=== PATIENT | female | born 1930 | race Caucasian/White ===

== ENCOUNTER 2019-04-21 10:10 | Inpatient (IN) ==
[2019-04-21] MEDS ORDERED: NS 1,000 ML IV ONE (10:24)
[2019-04-21] MEDS ORDERED: BENADRYL IV ONE (10:24)
[2019-04-21] MEDS ORDERED: HALDOL IV ONE (10:24)
[2019-04-21] MEDS ORDERED: ATIVAN IV ONE (10:24)
[2019-04-21 11:06] LABS: URINE SOURCE CATH
[2019-04-21 11:11] LABS: ALLEN TEST YES; BE -0.6 mmoll (-3.0-3.0); BLOOD TYPE ARTERIAL; HCO3-(ACT) 24.4 mmoll (20.0-26.0); METHB 0.8 % (0.0-1.5); O2(CT) 19.4 mL/dL (15.0-23.0); O2HB 95.6 % (95.0-99.0); PCO2(98.6) 35 mmHg (35-45); PO2(98.6) 88 mmHg (60-100); SAMPLE BLOOD; SAO2 97.6 % (95.0-100.0); THB 14.4 g/dL (11.5-17.4); pH(98.6) 7.43 (7.35-7.45)
[2019-04-21 11:13] LABS: BASO# 0.01 X1000 (0.0-0.2); BASO% 0.1 % (0.0-0.8); EOS# 0.17 X1000 (0.0-0.7); EOS% 1.6 % (0.0-10.0); HEMATOCRIT 42.1 % (37.0-47.0); HEMOGLOBIN 14.2 g/dL (12.0-16.0); LYMPH# 3.06 X1000 (1.2-3.4); LYMPH% 29.7 % (20.5-51.1); MCH 30.2 PG (27-31); MCHC 33.7 g/dL (33-37); MCV 89.6 FL (81-99); MONO# 0.86 X1000 (0.11-0.59); MONO% 8.3 % (1.7-9.3); MPV 11.7 FL (7.4-10.4); NEUT# 6.21 X1000 (1.4-6.5); NEUT% 60.3 % (42.2-75.2); PLT 187 X1000 (130-400); RDW 13.4 % (11.5-14.5); WBC 10.31 X1000 (4.8-10.8)
[2019-04-21 11:15] LABS: BILIRUBIN URINE NEGATIVE (NEGATIVE); BLOOD URINE TRACE (NEGATIVE); COLOR YELLOW; GLUCOSE URINE NEGATIVE (NEGATIVE); KETONE URINE TRACE mg/dL (NEGATIVE); LEUKOCYTES URINE NEGATIVE (NEGATIVE); NITRITE URINE NEGATIVE (NEGATIVE); PROTEIN URINE TRACE mg/dL (NEGATIVE); SP GRAVITY URINE 1.022; TURBIDITY URINE CLEAR (CLEAR); UROBILINOGEN URINE 2 mg/dL (NORMAL)
[2019-04-21 11:16] LABS: INR 1.09; PROTIME 14.3 Seconds (11.0-16.0)
[2019-04-21 11:16] LABS: UR EPITHELIAL CELLS <10 /HPF (<10); URINE BACTERIA NEGATIVE /HPF; URINE RBC <10 /HPF (<10); URINE WBC <10 /HPF (<10)
[2019-04-21 11:22] LABS: MODALITY ROOM AIR
[2019-04-21 11:24] LABS: UR AMPHETAMINES QUAL NONE DETECTED (NONE DETECT); UR BARBITUATES QUAL NONE DETECTED (NONE DETECT); UR BENZODIAZEPIN QUAL NONE DETECTED (NONE DETECT); UR COCAINE QUAL NONE DETECTED (NONE DETECT); UR OPIATES QUAL NONE DETECTED (NONE DETECT)
[2019-04-21 11:25] LABS: UR CANNABINOIDS QUAL NONE DETECTED (NONE DETECT); UR METHADONE QUAL NONE DETECTED (NONE DETECT); UR OXYCODONE QUAL NONE DETECTED (NONE DETECT); UR PCP QUAL NONE DETECTED (NONE DETECT)
--- NOTE | 2019-04-21 11:28 | Diag Imaging Result Doc PS360 ---
EXAM: CHEST-PORTABLE INDICATION: AMS TECHNIQUE: One view COMPARISON: None. FINDINGS: The lungs are grossly clear. There is no discrete pleural fluid collection or pneumothorax. The cardiomediastinal silhouette and central vasculature are grossly unremarkable. IMPRESSION: No evidence of acute pathology by plain radiograph. Electronically signed by Randy Mitchell 04/21/2019 11:26 AM
[2019-04-21 11:34] LABS: AGAP 13; ALB/GLOB RATIO 2.2; ALBUMIN 4.2 g/dL (3.5-5.0); ALKALINE PHOSPHATASE 94 U/L (32-104); BUN 19 mg/dL (8-22); CALCIUM 10.3 mg/dL (8.8-10.2); CHLORIDE 107 mmol/L (98-107); CK PROFILE 32 U/L (24-173); COSMO 287; GLUCOSE 91 mg/dL (70-104); GOT 15 U/L (10-30); GPT 10 U/L (10-36); MAGNESIUM 2.1 mg/dL (1.5-2.7); POTASSIUM 4.2 mmol/L (3.5-5.1); SODIUM 143 mmol/L (136-145); TCO2 23 mmol/L (25-35); TOTAL BILIRUBIN 0.57 mg/dL (0.20-1.00); TOTAL PROTEIN 6.1 g/dL (6.3-8.3)
--- NOTE | 2019-04-21 11:36 | Diag Imaging Result Doc PS360 ---
EXAM: CT HEAD W/O CONTRAST 04/21/2019 HISTORY: AMS TECHNIQUE: This exam was performed using automated exposure control, adjustment of mA or kV according to patient size, and/or use of iterative reconstruction technique. COMMENT: There are calcifications in the internal carotid arteries bilaterally. There is some patchy ill-defined lucency in the white matter both hemispheres particularly near the atria of the lateral ventricles and frontal horns. There is no evidence of mass effect, bleed, or abnormal extra-axial fluid collection. There is some hyperostosis of the calvarium. No evidence of acute bony disease is present. The visualized paranasal sinuses are clear. Compared to the previous examination of 05/26/2018 there has been no appreciable change. IMPRESSION: Chronic ischemic microvascular white matter changes. No definite evidence of acute disease. Further evaluation with MRI may be desirable in view of the chronic changes. Electronically signed by Roman Coles 04/21/2019 11:33 AM
[2019-04-21 12:33] LABS: ACETAMINOPHEN < 1.2 ug/mL (10-30); SALICYLATES < 3.00 mg/dL (3-10)
--- NOTE | 2019-04-21 12:37 | EKG Report ---
Test Performed on : 04/21/2019 12:04:27 PM Test Reason : AMS Blood Pressure : / mmHG Vent. Rate : 079 BPM Atrial Rate : 079 BPM P-R Int : 178 ms QRS Dur : 082 ms QT Int : 386 ms P-R-T Axes : 068 -23 055 degrees QTc Int : 442 ms Normal sinus rhythm. Possible Left atrial enlargement Borderline ECG No previous ECGs available Unconfirmed Result
[2019-04-21] MEDS ORDERED: CATAPRES PO ONE (16:07)
--- NOTE | 2019-04-21 17:32 | PROVIDER DOCUMENTATION ---
This chart was entered by Heena Gonsalez Scribe, acting as scribe for Asad Pimentel MD. HPI-Neurological Disorder - General Stated Complaint: AMS Time Seen by Provider: 04/21/19 10:16 Source: RN/ (RN) Allergies/Adverse Reactions: Patient Allergies Allergy/AdvReac Type Severity Reaction Status Date / Time No Known Allergies Allergy Verified 04/21/19 11:14 Home Medications: Home Medication List Medication Instructions Recorded Confirmed Last Taken Type Cyanocobalamin (Vitamin B-12) 1,000 mcg IM DIRECTED 05/26/18 04/21/19 03/25/19 History [Liquid B-12] Docusate Sodium 100 mg PO BID 05/26/18 04/21/19 04/21/19 08:00 History Metoprolol Succinate E.r. [Toprol 100 mg PO QHS 05/26/18 04/21/19 04/20/19 20:00 History Xl] Mineral Oil, Light/Mineral Oil 15 ml OP DAILY 05/26/18 04/21/19 04/20/19 History [Soothe Xp Eye Drops] Montelukast [Singulair] 10 mg PO QHS 05/26/18 04/21/19 Unknown History [place]-3 Acid Ethyl Esters [Lovaza] 1 gm PO DAILY 05/26/18 04/21/19 04/21/19 08:00 History SIMVAstatin [Zocor] 10 mg PO QHS 05/26/18 04/21/19 04/20/19 20:00 History Solifenacin Succinate [Vesicare] 10 mg PO DAILY 05/26/18 04/21/19 04/21/19 08:00 History Valsartan [Diovan] 320 mg PO QHS 05/26/18 04/21/19 04/20/19 20:00 History Cetirizine HCl [Zyrtec] 1 tab PO DAILY 04/21/19 04/21/19 04/21/19 08:00 History Polyethylene Glycol 3350 [Miralax] 1 dose PO DIRECTED 04/21/19 04/21/19 04/19/19 08:00 History Quetiapine Fumarate [Seroquel] 1 tab PO QAM 04/21/19 04/21/19 04/21/19 09:00 History Quetiapine [Seroquel] 1 tab PO [facility] 04/21/19 04/21/19 04/20/19 19:00 History - History of Present Illness-Neuro Nature of Presenting Problem: Patient is a 88 year old female who presents to the ED via EMS with altered mental status. RN states EMS stated patient has been combative and uncooperative for the last 5 days. Patient denies pain. Severity: reports: mild Onset/Duration: reports: 5 days ago Timing: reports: still present Context: reports: other (AMS) Character of Altered Mental Status: reports: combative, other (uncooperative) Associated Symptoms: reports: denies symptoms Similar Symptoms Previously?: Yes Recently seen or treated by another doctor?: No Review of Systems - Adult - REVIEW OF SYSTEMS - ADULT ROS:: limited per condition Constitutional: reports: no symptoms reported Eyes: reports: no symptoms reported Ears, Nose, Mouth & Throat: reports: no symptoms reported Cardiovascular: reports: no symptoms reported Respiratory: reports: no symptoms reported Gastrointestinal: reports: no symptoms reported Genitourinary: reports: no symptoms reported Musculoskeletal: reports: no symptoms reported Integumentary: reports: no symptoms reported Neurological: reports: no symptoms reported Psychiatric: reports: no symptoms reported Endocrine: reports: no symptoms reported Hematologic/Lymphatic: reports: no symptoms reported Allergic/Immunologic: reports: no symptoms reported All Other Systems: Reviewed and Negative Past History - Adult - PAST MEDICAL HISTORY-ADULT Review of Records: reports: Old Records Reviewed, Social history reviewed & non- contributory. Major Childhood Illnesses: reports: denies history Cardiovascular: reports: HTN Respiratory: reports: denies history Gastrointestinal: reports: denies history Obstetrical/Gynecological: reports: denies history Genitourinary: reports: denies history Musculoskeletal: reports: denies history Neurological: reports: denies history Psychiatric: reports: denies history Endocrine/Immune: reports: denies history Other Conditions: reports: denies history - PRIOR SURGERIES/PROCEDURES Surgical/Procedure History: reports: reviewed, not pertinent - IMMUNIZATION STATUS Childhood Immunizations: See Nurse Assessment Flu Vaccine: See Nurse Assessment - FAMILY HISTORY Family History: reviewed, not pertinent - SOCIAL HISTORY Smoking: denies Substance Use: denies Living Situation: care facility (assisted living) Physical Exam- Neurological - Physical Exam-Neuro Initial Vital Signs Reviewed: Yes General Appearance: alert, no apparent distress, other (uncooperative). negative: lethargic HENMT: normocephalic/atraumatic, moist mucous membranes. negative: angioedema Head Injury: no evidence of injury. negative: active bleeding, lacerations Respiratory: chest non-tender, lungs clear, normal breath sounds. negative: crackles, rhonchi Cardiovascular: normal peripheral pulses, regular rate, rhythm, extra beats (occasional ectopic beats). negative: tachycardia Abdominal Exam: normal bowel sounds, non tender, soft. negative: guarding, rebound Extremity: non-tender, normal inspection. negative: deformity, erythema anesthesia assistant Exam: normal hearing, normal speech. negative: facial droop Neurologic: grossly normal. negative: aphasia, facial droop Integumentary: normal color, normal turgor, warm/dry. negative: diaphoresis, jaundice, rash Psych/Mental Status: other (uncooperative. oriented to person. disoriented to place and time.). negative: anxious Progress - PLAN OF CARE/RESULTS Progress/Plan/Lab Results: Vital Signs - 8 hr 04/21/19 10:22 04/21/19 10:25 04/21/19 10:30 Temperature Pulse Rate 81 Respiratory Rate 20 Blood Pressure 195/139 O2 Sat by Pulse Oximetry 89 L 95 98 04/21/19 10:34 04/21/19 10:45 04/21/19 10:49 Temperature Pulse Rate 90 105 H 98 H Respiratory Rate 28 H 19 14 Blood Pressure 187/110 197/125 O2 Sat by Pulse Oximetry 99 98 98 04/21/19 10:54 04/21/19 11:00 04/21/19 11:05 Temperature 99 F Pulse Rate 91 H 98 H 90 Respiratory Rate 16 32 H 22 Blood Pressure 197/125 203/143 O2 Sat by Pulse Oximetry 96 98 97 04/21/19 11:29 04/21/19 11:30 04/21/19 11:45 Temperature Pulse Rate 86 84 80 Respiratory Rate 15 23 20 Blood Pressure O2 Sat by Pulse Oximetry 94 L 97 04/21/19 12:00 04/21/19 12:07 04/21/19 12:15 Temperature Pulse Rate 83 78 78 Respiratory Rate 22 16 17 Blood Pressure 136/85 O2 Sat by Pulse Oximetry 98 97 96 04/21/19 12:30 04/21/19 12:45 04/21/19 13:00 Temperature Pulse Rate 74 84 79 Respiratory Rate 14 33 H 27 H Blood Pressure O2 Sat by Pulse Oximetry 96 04/21/19 13:15 04/21/19 13:30 04/21/19 13:31 Temperature Pulse Rate 84 Respiratory Rate 21 Blood Pressure 180/79 O2 Sat by Pulse Oximetry 96 97 04/21/19 13:45 04/21/19 14:01 04/21/19 14:47 Temperature Pulse Rate 86 Respiratory Rate 23 Blood Pressure O2 Sat by Pulse Oximetry 92 L 81 L 04/21/19 14:50 Temperature Pulse Rate 81 Respiratory Rate 17 Blood Pressure 183/118 O2 Sat by Pulse Oximetry 96 Laboratory Results - last 24 hr 04/21/19 04/21/19 04/21/19 10:35 10:35 10:35 WBC 10.31 RBC 4.70 Hgb 14.2 Hct 42.1 MCV 89.6 MCH 30.2 MCHC 33.7 RDW Std Deviation 13.4 Plt Count 187 MPV 11.7 H Neut % (Auto) 60.3 Lymph % (Auto) 29.7 [place] % (Auto) 8.3 Eos % (Auto) 1.6 Baso % (Auto) 0.1 Neut # (Auto) 6.21 Lymph # (Auto) 3.06 [place] # (Auto) 0.86 H Eos # (Auto) 0.17 Baso # (Auto) 0.01 PT INR Specimen Type Sample Site pH pCO2 pO2 HCO3 Base Excess Oxyhemoglobin ABG O2 Sat (Calculated) ABG O2 Saturation ABG Carboxyhemoglobin ABG Methemoglobin El Test A-a O2 Difference Total Hemoglobin Lactate Blood Gas Modality FiO2 % Sodium 143 Potassium 4.2 Chloride 107 Carbon Dioxide 23 L Anion Gap 13 BUN 19 Creatinine 1.0 H BUN/Creatinine Ratio 19 Glucose 91 POC Glucose Calculated Osmolality 287 Calcium 10.3 H Magnesium 2.1 Total Bilirubin 0.57 AST 15 ALT 10 Alkaline Phosphatase 94 Creatine Kinase 32 Troponin T Trb-E-Jwoheamoksy Pept Total Protein 6.1 L Albumin 4.2 Globulin 1.9 Albumin/Globulin Ratio 2.2 Plasma Lactate TSH 0.24 L Urine Source Urine Color Urine Turbidity Urine pH Ur Specific [place] Urine Protein Ur Glucose (Stick) Ur Ketones (Stick) Urine Blood Urine Nitrite Urine Bilirubin Urobilinogen Dipstick Urine Leukocytes Urine WBC (Auto) Urine RBC (Auto) U Epithel Cells (Auto) Urine Bacteria (Auto) Salicylates < 3.00 L Urine Opiates Screen Ur Oxycodone Screen Ur Methadone, Qual Acetaminophen < 1.2 L Ur Barbiturates Screen Ur Phencyclidine Scrn Ur Amphetamines Screen U Benzodiazepines Scrn Urine Cocaine Screen U Cannabinoids Screen Plasma/Serum Ethyl Alc 04/21/19 04/21/19 04/21/19 10:35 10:35 10:35 WBC RBC Hgb Hct MCV MCH MCHC RDW Std Deviation Plt Count MPV Neut % (Auto) Lymph % (Auto) [place] % (Auto) Eos % (Auto) Baso % (Auto) Neut # (Auto) Lymph # (Auto) [place] # (Auto) Eos # (Auto) Baso # (Auto) PT INR Specimen Type Sample Site pH pCO2 pO2 HCO3 Base Excess Oxyhemoglobin ABG O2 Sat (Calculated) ABG O2 Saturation ABG Carboxyhemoglobin ABG Methemoglobin El Test A-a O2 Difference Total Hemoglobin Lactate Blood Gas Modality FiO2 % Sodium Potassium Chloride Carbon Dioxide Anion Gap BUN Creatinine BUN/Creatinine Ratio Glucose POC Glucose Calculated Osmolality Calcium Magnesium Total Bilirubin AST ALT Alkaline Phosphatase Creatine Kinase Troponin T Qgd-C-Pcxzjcebaac Pept 634 H Total Protein Albumin Globulin Albumin/Globulin Ratio Plasma Lactate 2.6 H TSH Urine Source Urine Color Urine Turbidity Urine pH Ur Specific [place] Urine Protein Ur Glucose (Stick) Ur Ketones (Stick) Urine Blood Urine Nitrite Urine Bilirubin Urobilinogen Dipstick Urine Leukocytes Urine WBC (Auto) Urine RBC (Auto) U Epithel Cells (Auto) Urine Bacteria (Auto) Salicylates Urine Opiates Screen Ur Oxycodone Screen Ur Methadone, Qual Acetaminophen Ur Barbiturates Screen Ur Phencyclidine Scrn Ur Amphetamines Screen U Benzodiazepines Scrn Urine Cocaine Screen U Cannabinoids Screen Plasma/Serum Ethyl Alc 04/21/19 04/21/19 04/21/19 10:35 10:35 10:36 WBC RBC Hgb Hct MCV MCH MCHC RDW Std Deviation Plt Count MPV Neut % (Auto) Lymph % (Auto) [place] % (Auto) Eos % (Auto) Baso % (Auto) Neut # (Auto) Lymph # (Auto) [place] # (Auto) Eos # (Auto) Baso # (Auto) PT 14.3 INR 1.09 Specimen Type Sample Site pH pCO2 pO2 HCO3 Base Excess Oxyhemoglobin ABG O2 Sat (Calculated) ABG O2 Saturation ABG Carboxyhemoglobin ABG Methemoglobin El Test A-a O2 Difference Total Hemoglobin Lactate Blood Gas Modality FiO2 % Sodium Potassium Chloride Carbon Dioxide Anion Gap BUN Creatinine BUN/Creatinine Ratio Glucose POC Glucose Calculated Osmolality Calcium Magnesium Total Bilirubin AST ALT Alkaline Phosphatase Creatine Kinase Troponin T < 0.010 Cqh-V-[place] Pept Total Protein Albumin Globulin Albumin/Globulin Ratio Plasma Lactate TSH Urine Source CATH Urine Color YELLOW Urine Turbidity CLEAR Urine pH 6.0 Ur Specific [place] 1.022 Urine Protein TRACE A Ur Glucose (Stick) NEGATIVE Ur Ketones (Stick) TRACE A Urine Blood TRACE A Urine Nitrite NEGATIVE Urine Bilirubin NEGATIVE Urobilinogen Dipstick 2 A Urine Leukocytes NEGATIVE Urine WBC (Auto) <10 Urine RBC (Auto) <10 U Epithel Cells (Auto) <10 Urine Bacteria (Auto) NEGATIVE Salicylates Urine Opiates Screen Ur Oxycodone Screen Ur Methadone, Qual Acetaminophen Ur Barbiturates Screen Ur Phencyclidine Scrn Ur Amphetamines Screen U Benzodiazepines Scrn Urine Cocaine Screen U Cannabinoids Screen Plasma/Serum Ethyl Alc 04/21/19 04/21/19 04/21/19 10:36 11:12 14:38 WBC RBC Hgb Hct MCV MCH MCHC RDW Std Deviation Plt Count MPV Neut % (Auto) Lymph % (Auto) [place] % (Auto) Eos % (Auto) Baso % (Auto) Neut # (Auto) Lymph # (Auto) [place] # (Auto) Eos # (Auto) Baso # (Auto) PT INR Specimen Type ARTERIAL Sample Site R RADIAL pH 7.43 pCO2 35 pO2 88 HCO3 24.4 Base Excess -0.6 Oxyhemoglobin 95.6 ABG O2 Sat (Calculated) 19.4 ABG O2 Saturation 97.6 ABG Carboxyhemoglobin 1.10 ABG Methemoglobin 0.8 El Test YES A-a O2 Difference 18.0 Total Hemoglobin 14.4 Lactate 2.40 H Blood Gas Modality ROOM AIR FiO2 % 21.0 Sodium Potassium Chloride Carbon Dioxide Anion Gap BUN Creatinine BUN/Creatinine Ratio Glucose POC Glucose 70 Calculated Osmolality Calcium Magnesium Total Bilirubin AST ALT Alkaline Phosphatase Creatine Kinase Troponin T Ycd-O-Ovzwcqriugq Pept Total Protein Albumin Globulin Albumin/Globulin Ratio Plasma Lactate TSH Urine Source Urine Color Urine Turbidity Urine pH Ur Specific [place] Urine Protein Ur Glucose (Stick) Ur Ketones (Stick) Urine Blood Urine Nitrite Urine Bilirubin Urobilinogen Dipstick Urine Leukocytes Urine WBC (Auto) Urine RBC (Auto) U Epithel Cells (Auto) Urine Bacteria (Auto) Salicylates Urine Opiates Screen NONE DETECTED Ur Oxycodone Screen NONE DETECTED Ur Methadone, Qual NONE DETECTED Acetaminophen Ur Barbiturates Screen NONE DETECTED Ur Phencyclidine Scrn NONE DETECTED Ur Amphetamines Screen NONE DETECTED U Benzodiazepines Scrn NONE DETECTED Urine Cocaine Screen NONE DETECTED U Cannabinoids Screen NONE DETECTED Plasma/Serum Ethyl Alc Orders Category Date Time Status Finger Stick Blood Sugar (ED) DIRECTED Care 04/21/19 10:21 Active Nursing- Obtain EKG once Care 04/21/19 10:22 Active Saline Loc NOW Care 04/21/19 10:22 Active Straight Catheterization ORDERED Care 04/21/19 10:22 Active Regular Diet Diet 04/21/19 16:02 Active CHEST-PORTABLE [RAD] Stat Exams 04/21/19 10:[address] HEAD W/O CONTRAST [CT] Stat Exams 04/21/19 10:24 Completed ABG [RESP] Routine Lab 04/21/19 11:12 Completed ACETAMINOPHEN [TDM] Stat Lab 04/21/19 10:35 Completed ALCOHOL BLOOD Stat Lab 04/21/19 10:35 Completed BLOOD CULTURE [BLDCUL] Stat Lab 04/21/19 10:35 Results CBC WITH ELECTRONIC DIFF [HEME] Stat Lab 04/21/19 10:35 Completed CK PROFILE [SP CHEM] Stat Lab 04/21/19 10:35 Completed COMPREHENSIVE METABOLIC PANEL [CHEM] Stat Lab 04/21/19 10:35 Completed LACTATE, PLASMA [CHEM] Stat Lab 04/21/19 10:35 Completed MAGNESIUM [CHEM] Stat Lab 04/21/19 10:35 Completed PRO B-NATRIURETIC PEPTIDE Stat Lab 04/21/19 10:35 Completed PROTIME WITH INR [COAG] Stat Lab 04/21/19 10:35 Completed SALICYLATES [TDM] Stat Lab 04/21/19 10:35 Completed TROPONIN T Stat Lab 04/21/19 10:35 Completed TSH Stat Lab 04/21/19 10:35 Completed URINALYSIS W/POSS RFLX CULT [URINALYSIS] Stat Lab 04/21/19 10:36 Completed URINE DRUG SCREEN Stat Lab 04/21/19 10:36 Completed 0.9% Sodium Chloride Inj [Ns] 1,000 ml Med 04/21/19 10:24 Discontinued IV 999 mls/hr Clonidine [Catapres] Med 04/21/19 16:07 Discontinued 0.2 mg PO NOW ONE Diphenhydramine [Benadryl] Med 04/21/19 10:24 Discontinued 25 mg IV NOW ONE Haloperidol Lactate [Haldol] Med 04/21/19 10:24 Discontinued 2 mg IV NOW ONE Lorazepam [Ativan] Med 04/21/19 10:24 Discontinued 1 mg IV NOW ONE EKG [EKG] Stat Ther 04/21/19 10:22 Draft Result Diagrams: 04/21/19 10:35 04/21/19 10:35 - REASSESSMENT Reassessment #1 Time Reassessed: 12:23 Status: improving (Patient given sedation with IV haldol/benadryl/ativan. Much better. BP 136/85. Lactic Acid is elevated, but no SIRS criteria, sign of infection. Likely medication related. Will discuss with Dr. Arteaga, but patient seems like she has dementia with behavioral disturbance.) Reassessment Comment: Old chart, labs, [facility] records reviewed Reassessment #2 Time Reassessed: 17:31 Status: unchanged (Patient took own IV out, still confused, BP elevated. Given Clonidine. Dr. Arteaga saw patient in ER and decided to admit to hospital today and then figure out disposition afterwards.) - EKG 1 Time of EKG reading by physician:: 12:04 EKG Read and Signed by:: Asad Pimentel EKG Interpretation (*Must complete 3 of following elements*): Abnormal Rate: 79 Rhythm: normal sinus rhythm [place]: normal CT Interval: normal Comments: possible left atrial enlargement - XRAY 1 XRAY Study: Chest Impression: See EMR Report ( EXAM: CHEST-PORTABLE INDICATION: AMS TECHNIQUE: One view COMPARISON: None. FINDINGS: The lungs are grossly clear. There is no discrete pleural fluid collection or pneumothorax. The cardiomediastinal silhouette and central vasculature are grossly unremarkable. IMPRESSION: No evidence of acute pathology by plain radiograph. Electronically signed by Randy Mitchell 04/21/2019 11:26 AM 04/21/19 1126 Interpreting Physician: Randy Mitchell MD Dictated Date/Time: 04/21/19 1125 cc: Asad Pimentel MD; El Arteaga MD) - CT/MRI 1 CT Study: Head Impression: See EMR Report ( Signed EXAM: CT HEAD W/O CONTRAST 04/21/2019 HISTORY: AMS TECHNIQUE: This exam was performed using automated exposure control, adjustment of mA or kV according to patient size, and/or use of iterative reconstruction technique. COMMENT: There are calcifications in the internal carotid arteries bilaterally. There is some patchy ill-defined lucency in the white matter both hemispheres particularly near the atria of the lateral ventricles and frontal horns. There is no evidence of mass effect, bleed, or abnormal extra-axial fluid collection. There is some hyperostosis of the calvarium. No evidence of acute bony disease is present. The visualized paranasal sinuses are clear. Compared to the previous examination of 05/26/2018 there has been no appreciable change. IMPRESSION: Chronic ischemic microvascular white matter changes. No definite evidence of acute disease. Further evaluation with MRI may be desirable in view of the chronic changes. Electronically signed by Roman Coles 04/21/2019 11:33 AM 04/21/19 1133 Interpreting Physician: Roman Coles MD Dictated Date/Time: 04/21/19 1132 cc: Asad Pimentel MD; El Arteaga MD) - CONSULTS/PCP/HOSPITALIST Notification #1 *Consult/PCP/Hospitalist*: [facility] PCP, paged at 1226 Time Discussed: 12:40 Reason/Comments: try to get psych to take for dementia. Agrees Lactate is likely medication Consult Disposition: other #2 Consult: [facility] Time Discussed: 17:32 Consult Disposition: Will see in ED, Admit Departure - Departure Date of Disposition Decision: 04/21/19 Time of Disposition Decision: 17:32 DIAGNOSIS: Elevated lactic acid level Dementia with behavioral disturbance Qualifiers: Dementia type: Alzheimer's disease Alzheimer's disease onset: late-onset Qualified Code(s): G30.1 - Alzheimer's disease with late onset; F02.81 - Dementia in other diseases classified elsewhere with behavioral disturbance Hypertension Qualifiers: Hypertension type: essential hypertension Qualified Code(s): I10 - Essential (primary) hypertension Disposition: ADMITTED INPATIENT 09 Certified Medical Emergency: Emergent Condition: Fair Referrals and Follow-Ups: El Arteaga MD [Primary Care Provider] - - Critical Care Note This patient required my direct & personal management of CC.: Yes Total Time (mins): 45 ([employer]BER/[facility] in peril) Critical Care Statement: This patient required my direct personal management to treat or rule out processes, the absence of which, could potentiallly result in sudden, clinically significant life or limb threatening deterioration. Attestation - Physician/ DEB Attestation Patient care was provided by Advanced Practice Provider:: No The physician spent face to face time with patient:: Yes Advanced Practice Provider documentation review:: Supervising physician onsite and consulted in the evaluation and care of this patient. The physician did have a face to face encounter with the patient. This chart was documented by the indicated scribe, (Heena Gonsalez Scribe) and accurately reflects the services I performed and decisions made by me, Asad Pimentel MD, as attested by the provider's signature.
[2019-04-21] MEDS ORDERED: TYLENOL PO PRN (17:48)
--- NOTE | 2019-04-21 18:03 | HISTORY AND PHYSICAL ---
HISTORY OF PRESENT ILLNESS: Patient is an 88-year-old patient of mine. She has a history of osteoarthritis. She has had a history of DVT in the past. She is at assisted living and was sent here because of trouble with wandering and behavior problems. So, plan to admit her. She does appear to have some confusion and we know she has some underlying dementia which is progressing. I do not see any definitive underlying infection. Her urine was pretty unremarkable and the blood gases look good. Urine drug screen was negative. FAMILY HISTORY: Really no remarkable history for coronary disease or diabetes or kidney disease. SOCIAL HISTORY: Negative for alcohol or tobacco. PHYSICAL EXAMINATION: VITAL SIGNS: Temp 99 degrees, pulse 80, respirations 17, blood pressure 183/118. HEENT: Pupils are equal and round. LUNGS: Clear in all lung [place]. CARDIOVASCULAR: Regular rhythm and rate without murmur or S3. ABDOMEN: Soft. SKIN: Warm and dry. NEUROLOGIC: She is alert and oriented to person. She knows she is at the hospital. Otherwise disoriented. LABORATORY DATA: White count 10,310, hematocrit 42, platelet count 187,000. Sodium 143, potassium 4.2, chloride 107, BUN 19, creatinine 1.0, calcium is 10.3, magnesium is 2.1. AST 15, ALT 10, alkaline phosphatase is 94, albumin is 4.2. TSH is 0.24. Lactate level is 2.6. Urine drug screen was unremarkable. Urinalysis negative. Blood gases, pH is 7.43, pCO2 is 35, PO2 is 88, O2 saturation is 95%. Chest x-ray with no evidence of any acute pathology. No sign of infiltrate. Head CT: Chronic ischemic microvascular white matter changes. No definite evidence of acute disease. ASSESSMENT AND PLAN: Metabolic encephalopathy, altered mental status. She will not be able to return to assisted living. I do not see any sign of infection. We have tried to adjust her medications. Have not had any success with getting psychiatric screening. So, plan to admit her. I am going to put her on Seroquel and we are going to try 200 mg of Seroquel twice a day. I am going to stop her Singulair. I will stop her Lovaza. I will stop her Zocor and her VESIcare and her Diovan and watch and see how we do. I am going to check her thyroid, B12, and folate. Ask social service to help us with finding placement. cc: El Arteaga MD
[2019-04-21] MEDS ORDERED: MIRALAX PO PRN (18:57)
[2019-04-21] MEDS ORDERED: HALDOL IM PRN (19:59)
[2019-04-21] MEDS ORDERED: SEROQUEL PO SCH (21:00)
[2019-04-21] MEDS: COLACE PO SCH (23:40)
[2019-04-21] MEDS: SEROQUEL PO SCH (23:40)
[2019-04-21] MEDS: TOPROL XL PO SCH (23:41)
[2019-04-22] MEDS: TOPROL XL PO SCH ×2 (01:04→22:00)
[2019-04-22] MEDS: SEROQUEL PO SCH ×3 (01:04→21:59)
--- NOTE | 2019-04-22 06:56 | EKG Report ---
Test Performed on : 04/22/2019 06:26:41 AM Test Reason : chest pain Blood Pressure : / mmHG Vent. Rate : 060 BPM Atrial Rate : 060 BPM P-R Int : 180 ms QRS Dur : 078 ms QT Int : 478 ms P-R-T Axes : 060 -14 079 degrees QTc Int : 478 ms Normal sinus rhythm. Nonspecific T wave abnormality Prolonged QT Abnormal ECG When compared with ECG of 21-APR-2019 12:04, (Unconfirmed) Nonspecific T wave abnormality, worse in Lateral leads Confirmed by Diana KU, Wayne Conroy ([id number]) on 04/22/2019 9:05:03 AM
[2019-04-22 08:58] LABS: BASO# 0.02 X1000 (0.0-0.2); BASO% 0.3 % (0.0-0.8); EOS# 0.19 X1000 (0.0-0.7); EOS% 3.1 % (0.0-10.0); HEMATOCRIT 39.8 % (37.0-47.0); HEMOGLOBIN 13.5 g/dL (12.0-16.0); LYMPH# 1.82 X1000 (1.2-3.4); LYMPH% 29.6 % (20.5-51.1); MCH 30.1 PG (27-31); MCHC 33.9 g/dL (33-37); MCV 88.8 FL (81-99); MONO# 0.58 X1000 (0.11-0.59); MONO% 9.4 % (1.7-9.3); NEUT# 3.54 X1000 (1.4-6.5); NEUT% 57.6 % (42.2-75.2); PLT 154 X1000 (130-400); RBC 4.48 XMIL (4.2-5.4); RDW 13.3 % (11.5-14.5); WBC 6.15 X1000 (4.8-10.8)
[2019-04-22 09:23] LABS: AGAP 8; ALB/GLOB RATIO 1.7; ALBUMIN 3.8 g/dL (3.5-5.0); ALKALINE PHOSPHATASE 80 U/L (32-104); BUN 16 mg/dL (8-22); CALCIUM 10.2 mg/dL (8.8-10.2); CHLORIDE 109 mmol/L (98-107); COSMO 286; CREATININE 0.8 mg/dL (0.5-0.9); ESTIMATED GFR > 60; GLUCOSE 92 mg/dL (70-104); GOT 15 U/L (10-30); GPT 9 U/L (10-36); MAGNESIUM 2.3 mg/dL (1.5-2.7); SODIUM 143 mmol/L (136-145); TCO2 26 mmol/L (25-35); TOTAL BILIRUBIN 0.69 mg/dL (0.20-1.00)
--- NOTE | 2019-04-22 10:16 | PROGRESS NOTE ---
DATE: 04/22/2019 SUBJECTIVE: Ms. Mcwilliams had a pretty uneventful night. She ate all of her breakfast. She is awake. She is oriented to person. I think she understands she is in the hospital or in a different setting. OBJECTIVE: Vital signs: She remains afebrile, temperature 98.7, pulse 58, respirations 18, blood pressure 148/66. HEENT: Pupils are equal and round. Lungs: Clear in all lung wesley. Cardiovascular exam: Regular rhythm and rate without murmur or S3. Abdomen: Soft. Skin: Warm and dry. LABORATORY: Her lab from this morning, white count 6150, hematocrit of 39, platelet count 154,000. Electrolytes: Sodium 143, potassium 4.0, chloride 109, BUN 16, creatinine 0.8, calcium 10.2. Pro time is 14.3. Urinalysis unremarkable. Chest x-ray: No evidence of acute pathology. No infiltrate. CT of her head: She has chronic ischemic microvascular white matter changes, no evidence of acute disease. ASSESSMENT AND PLAN: Altered mental status and some behavior problems at assisted living. Underlying dementia. I do not see active infection. Electrolytes look good. I am going to adjust her medications. She does have a history of constipation so we will watch that but she is right now on Seroquel 250 mg at bedtime, 100 mg q.a.m., Toprol XL 100 mg at bedtime, MiraLAX 17 g p.o. b.i.d., and Colace 100 mg b.i.d. We will get physical therapy to help as well as occupational therapy and ask Social Service to help as far as placement. cc: lE Arteaga MD
[2019-04-22] MEDS: COLACE PO SCH ×2 (10:41→22:00)
[2019-04-22] MEDS: PATIENT'S OWN MED OPH SCH (16:08)
[2019-04-23] MEDS: COLACE PO SCH ×2 (10:37→19:52)
[2019-04-23] MEDS: SEROQUEL PO SCH ×2 (10:38→19:52)
[2019-04-23] MEDS: PATIENT'S OWN MED OPH SCH (10:38)
[2019-04-23] MEDS ORDERED: DIOVAN PO ONE (18:40)
--- NOTE | 2019-04-23 19:43 | PROGRESS NOTE ---
DATE: 04/22/2019 Mrs. Mel Mcwilliams was admitted to [facility] with a metabolic encephalopathy. She has a history of severe dementia with underlying behavior issues. This afternoon she was oriented to name but was otherwise somewhat confused and disoriented. She was calm with no angry outbursts to this point in time. Her cultures, CBC and chest x-ray have demonstrated no evidence of infection. Dr. Arteaga had stopped her Zocor and VESIcare. Temperature 97.9 degrees, pulse 62, respiratory rate 18, BP 183/63.CV: Regular rate and rhythm. Lungs: Clear. Abdomen: Soft, nontender, with active bowel sounds. ASSESSMENT AND PLAN: 1. Metabolic encephalopathy. She has significant underlying dementia with behavior issues. There does not appear to be any evidence of infection to this point in time. I have started Levaquin pending urine cultures. Blood cultures are pending. I agree with holding simvastatin and VESIcare which VESIcare certainly can increase confusion in a patient with dementia. We will consult Hide Measuring Machine Operator to help with placement following hospitalization. 2. Hypertension. Her blood pressure is beginning to trend upward. Dr. Arteaga had initially held the Diovan 320 mg daily. I am going to begin valsartan 80 mg daily and will monitor her blood pressure. I would like to try to keep her systolic blood pressures in the 140s and 150s in order to reduce the risk of hypotension. cc: MD El Jacobson MD
[2019-04-23] MEDS: TOPROL XL PO SCH (19:52)
[2019-04-24] MEDS: SEROQUEL PO SCH ×3 (03:33→22:07)
[2019-04-24] MEDS: TOPROL XL PO SCH ×2 (03:33→22:07)
[2019-04-24] MEDS: COLACE PO SCH ×3 (03:33→22:07)
[2019-04-24] MEDS: PATIENT'S OWN MED OPH SCH (10:32)
--- NOTE | 2019-04-24 10:37 | PROGRESS NOTE ---
DATE: 04/24/2019 SUBJECTIVE: Ms. Mcwilliams has a history of hypertension. I resumed low-dose Diovan 80 mg daily. Blood pressure is trending downward. Yesterday, her blood pressure was as high as 203/112. This morning, her blood pressure was 144/91. She denies any chest pain, palpitations, or anginal equivalents. She does have a history of vascular dementia with behavior issues. She was admitted with encephalopathy. She remains oriented to name only. She is still very confused and disoriented. Her speech is rambling. She has not had any angry outbursts. Blood cultures are negative. Urine culture is pending. OBJECTIVE: Vital signs: Temperature 98.3 degrees, pulse 100, respirations 18, BP 144/91. CV: Regular rate and rhythm. Lungs: Clear. Abdomen: Soft, nontender, with active bowel sounds. ASSESSMENT AND PLAN: 1. Hypertension. Her blood pressure is trending down. We will continue valsartan 80 mg daily. 2. Metabolic encephalopathy. To this point in time, there does not appear to be any evidence of infection. Her VESIcare has been stopped which can increase confusion. I suspect that this is simply the progression of her underlying dementia exacerbated by medicines such as VESIcare. We will continue Seroquel for behavior issues. We will consult Detective Sergeant for placement issues. cc: MD El Jacobson MD
[2019-04-25] MEDS: PATIENT'S OWN MED OPH SCH (09:38)
[2019-04-25] MEDS: COLACE PO SCH ×2 (09:38→23:10)
[2019-04-25] MEDS: SEROQUEL PO SCH ×2 (09:38→23:10)
--- NOTE | 2019-04-25 09:44 | PROGRESS NOTE ---
DATE: 04/25/2019 SUBJECTIVE: Ms. Mcwilliams is sleeping, resting comfortably. She had a pretty uneventful weekend. OBJECTIVE: Temperature is 98.4 degrees, pulse 84, respirations 20, blood pressure 159/79. Pupils are equal and round. Lungs are clear in all lung wesley. Cardiovascular Examination: Regular rhythm and rate without murmur or S3. ASSESSMENT AND PLAN: We will have physical therapy see how we do as far as ambulating and work with her strength. REVIEW OF HER ORDERS: I do not see any change. Looking for placement in [facility]. cc: El Arteaga MD
[2019-04-25] MEDS: TOPROL XL PO SCH (23:11)
[2019-04-26] MEDS: COLACE PO SCH ×2 (13:58→20:49)
[2019-04-26] MEDS: PATIENT'S OWN MED OPH SCH (13:58)
[2019-04-26] MEDS: SEROQUEL PO SCH ×2 (13:59→20:50)
--- NOTE | 2019-04-26 17:46 | PROGRESS NOTE ---
DATE: 04/26/2019 SUBJECTIVE: Ms. Mcwilliams was awake and was pleasant. She has been sleeping quite a bit. She is eating good. Her bowels are moving. No complaints. She has been cooperative with physical therapy. OBJECTIVE: Vital signs: Temp 98.0 degrees, pulse 87, respirations 20, blood pressure 161/70. HEENT: Pupils are equal and round. Lungs: Clear in all lung wesley. Cardiovascular: Regular rhythm and rate without murmur or S3. Abdomen: Soft. Skin: Warm and dry. ASSESSMENT AND PLAN: 1. Metabolic encephalopathy is improved. She is eating well. She has underlying dementia and there are some behavior issues and unable to go to assisted living. Looking for snf placement. 2. Hypertension. Blood pressure appears well controlled. 3. Nutrition is good. So, continue present measures. Looking for snf placement. cc: El Arteaga MD
[2019-04-26] MEDS: TOPROL XL PO SCH (20:49)
[2019-04-27] MEDS: COLACE PO SCH ×2 (09:35→21:50)
[2019-04-27] MEDS: SEROQUEL PO SCH ×2 (09:35→21:50)
[2019-04-27] MEDS: PATIENT'S OWN MED OPH SCH (09:35)
--- NOTE | 2019-04-27 17:17 | PROGRESS NOTE ---
DATE: 04/27/2019 SUBJECTIVE: Ms. Mcwilliams was pleasant. She was resting, but easy to arouse. Eating well. She is trying to do some exercise on the side of the bed. OBJECTIVE: Vital signs: Temp 98.1 degrees, pulse 68, respirations 17, blood pressure 131/94. HEENT: Pupils are equal and round. Lungs: Clear in all lung wesley. Cardiovascular: Regular rhythm and rate without murmur or S3. Abdomen: Soft. Skin: Warm and dry. ASSESSMENT AND PLAN: 1. Metabolic encephalopathy which is improved, underlying dementia. I think she will be ready to go, trying to go to rehab at [facility] tomorrow. 2. Hypertension. Blood pressure well controlled. 3. Nutrition. Good p.o. intake. 4. Obesity. 5. Osteoarthritis. She does have a history of constipation. Apparently, her bowels are moving appropriately. cc: El Arteaga MD
[2019-04-27] MEDS: TOPROL XL PO SCH (21:50)
[2019-04-28] MEDS: COLACE PO SCH ×2 (09:18→22:50)
[2019-04-28] MEDS: SEROQUEL PO SCH ×2 (09:18→22:50)
[2019-04-28] MEDS: PATIENT'S OWN MED OPH SCH (09:19)
--- NOTE | 2019-04-28 13:54 | PROGRESS NOTE ---
DATE: 04/28/2019 SUBJECTIVE: Ms. Mcwilliams is comfortable, resting good. She is eating well. OBJECTIVE: Vital signs: Temp 97.4 degrees, pulse 80, respirations 18, blood pressure 129/58. HEENT: Pupils are equal round. Lungs: Are clear in all lung wesley. Cardiovascular: Regular rate without murmur or S3. Abdomen: Is soft. Skin: Is warm and dry. ASSESSMENT AND PLAN: 1. Metabolic encephalopathy. She is doing well, resting good. The plan is to go to [facility] when a bed is available. 2. Hypertension. 3. Nutrition. 4. Obesity. 5. Osteoarthritis. Continue her physical therapy with general weakness not able to ambulate very well. Of course she would benefit from weight reduction. She is on metoprolol succinate 100 mg at bedtime, Seroquel 100 mg q.a.m. 250 mg at bedtime, Colace 100 mg b.i.d., MiraLAX 17 g b.i.d. p.r.n.. cc: El Arteaga MD
[2019-04-28] MEDS: TOPROL XL PO SCH (22:50)
--- NOTE | 2019-04-29 09:25 | DISCHARGE SUMMARY ---
ADMISSION DATE: 04/21/2019 DISCHARGE DATE: 04/29/2019 HOSPITAL COURSE: This is an 88-year-old patient of mine, history of osteoarthritis, history of DVT in the past, who was in assisted living and had trouble with wandering and staying in her room with a little more confusion. She has underlying dementia which is progressing, but concerned possible urinary tract infection. She was admitted and was felt to be at a fall risk as well. She has no other significant past medical history, other than history of DVT. I did adjust her medications, and she seemed to show improvement. The p.o. intake was good. She was very cooperative. She felt she was ready to go to a snf, [facility]. We will have her on metoprolol 100 mg p.o. at bedtime, Seroquel 250 mg at bedtime and 100 mg q.a.m., and MiraLAX 17 g b.i.d. p.r.n. Keep her on a regular diet. Encourage physical therapy. cc: El Arteaga MD
[2019-04-29] MEDS: COLACE PO SCH (09:38)
[2019-04-29] MEDS: SEROQUEL PO SCH (09:38)
[2019-04-29] MEDS: PATIENT'S OWN MED OPH SCH (09:40)
[2019-04-29 12:05] VITALS: BP 152/43
== END 2019-04-29 16:20 | DRG 884 ==
LOC: SUPCPDRO → ED 10:10 → 3N 18:27
PROVIDERS: ADMIT Emergency Medicine; ATTEND Emergency Medicine

== ENCOUNTER 2019-10-22 11:57 | Inpatient (IN) ==
[2019-10-22 14:25] LABS: BASO# 0.02 X1000 (0.0-0.2); BASO% 0.2 % (0.0-0.8); EOS# 0.15 X1000 (0.0-0.7); EOS% 1.8 % (0.0-10.0); HEMATOCRIT 41.7 % (37.0-47.0); HEMOGLOBIN 13.6 g/dL (12.0-16.0); IMM GRAN# 0.02 X1000 (0.0-0.04); IMM GRAN% 0.2 % (0.0-0.5); LYMPH# 1.88 X1000 (1.2-3.4); LYMPH% 22.7 % (20.5-51.1); MCH 28.8 PG (27-31); MCHC 32.6 g/dL (33-37); MCV 88.3 FL (81-99); MONO# 0.58 X1000 (0.11-0.59); MPV 11.4 FL (7.4-10.4); NEUT# 5.64 X1000 (1.4-6.5); NEUT% 68.1 % (42.2-75.2); PLT 164 X1000 (130-400); RBC 4.72 XMIL (4.2-5.4); RDW 13.5 % (11.5-14.5); WBC 8.29 X1000 (4.8-10.8)
--- NOTE | 2019-10-22 14:37 | Diag Imaging Result Doc PS360 ---
EXAM: CT PELVIS W/O CONTRAST 10/22/2019 HISTORY: intractable pain, falls TECHNIQUE: This exam was performed using automated exposure control, adjustment of mA or kV according to patient size, and/or use of iterative reconstruction technique. COMMENT: The current study is compared with 10/21/2019. There is degenerative disc and facet disease at L4-5 with moderate spinal stenosis. There is facet arthropathy bilaterally at L5-S1. There is generalized osteopenia. There is a total hip prosthesis on the left. There are severe degenerative changes in the right hip. There are degenerative changes in the symphysis pubis with calcium pyrophosphate deposition. There is constipation with fecal impaction in the rectum. IMPRESSION: No apparent change since 10/21/2019. Bone scintigraphy or MRI might be considered to evaluate the possibility of occult stress fracture. Electronically signed by Roman Coles 10/22/2019 2:34 PM
[2019-10-22 14:47] LABS: ALB/GLOB RATIO 1.7; ALBUMIN 3.7 g/dL (3.5-5.0); CREATININE 0.9 mg/dL (0.5-0.9); POTASSIUM 3.5 mmol/L (3.5-5.1); TOTAL BILIRUBIN 0.73 mg/dL (0.20-1.00); TOTAL PROTEIN 5.9 g/dL (6.3-8.3)
--- NOTE | 2019-10-22 16:09 | HISTORY AND PHYSICAL ---
Ms. Mcwilliams has fallen twice now yesterday and today both times came to emergency room. She is at [facility] in the dementia unit. They do not have any specifics how she fell. No reported loss of consciousness, no chest pain but she does have dementia and she seemed to be in no pain. X-rays radiographic studies did not reveal any fractures. PAST MEDICAL HISTORY: Is consistent with history of DVT, she has a history of osteoarthritis. No history of kidney disease or coronary artery disease and she has a history of dementia. Negative history for alcohol or tobacco. SOCIAL HISTORY: She is a and lives in assisted living dementia unit at this time at [facility]. FAMILY HISTORY: Negative for coronary artery disease or kidney disease. REVIEW OF SYSTEMS: General: No we not aware of any recent weight gain or loss. No fever, chills. HEENT: Unremarkable. Respiratory: No increased work of breathing or dyspnea. Cardiovascular: No chest pain or tachy palpitation. GI and : No complaints of change in bowels or diarrhea or constipation. No gross hematuria, dysuria. Musculoskeletal/Neurologic: No focal complaints. EXAM: Weight is 180 pounds, height 5 feet 6 inches, she is afebrile, temperature 98 degrees, pulse 65, respirations 23, blood pressure 168/77. Pupils are equal and round.Lungs: Clear in all lung wesley. Cardiovascular: Regular rhythm and rate without murmur or S3. Abdomen: Soft, nondistended, nontender. Positive bowel sounds. No hepatosplenomegaly. Extremities: Without clubbing, cyanosis or edema. Neurologic: Grossly intact without any lateralizing deficits. Cranial nerves 2-12 intact. Motor strength 5/5 in all motor groups. Sensation intact and symmetrical. DATA: CT of the pelvis without any sign of fractures. Her labs unremarkable. ASSESSMENT AND PLAN: General weakness, obesity. She has had 2 falls now in the last couple days. We are going to have physical therapy evaluate. I think she is going to need more assistance. She may need to go to wheelchair and we may need to consider moving her to [facility]. Will get social service involved. Her current medications she is on B12 1000 mcg IM I think once a month, she is on docusate 100 mg b.i.d., Aricept 5 mg at bedtime, metoprolol succinate ER 100 mg p.o. at bedtime, MiraLAX 17 g I think daily, Seroquel I believe she is on 100 mg at bedtime and 25 mg in the morning and noon and Zocor 100 mg at bedtime. I will continue those and I do not think she needs any IV fluids. Will put her on a regular diet. cc: El Arteaga MD
--- NOTE | 2019-10-22 16:34 | PROVIDER DOCUMENTATION ---
This chart was entered by Mallory Schmitt Scribe, acting as scribe for Иван Kirk MD. HPI-Musculoskeletal Pain/Inj - GENERAL Chief Complaint: Hip Pain Stated Complaint: fall, left hip pain Time Seen by Provider: 10/22/19 13:06 Source: family (Daughter) - HX OF PRESENT ILLNESS-MUSKULOSKELTAL Nature of Presenting Problem: 88 y/o female presents to the ED via EMS from [facility] after fall with complaint of left hip pain. On review of records the patient was seen here yesterday with similar symptoms. Daughter states the patient did fall yesterday and then once again fell today. Onset/Duration: 24 hours ago Timing: still present Any recent injury?: Yes (fall at custodial ) Locality of Occurance: Other ([facility]) Similar Symptoms Previously?: Yes Recently seen or treated by another doctor?: Yes (yesterday here ) Review of Systems - Adult - REVIEW OF SYSTEMS - ADULT ROS:: ROS per family Constitutional: denies: chills, fever, weight loss Gastrointestinal: denies: diarrhea, nausea, vomiting Musculoskeletal: reports: joint pain (left hip). denies: back pain, neck pain Past History - Adult - PAST MEDICAL HISTORY-ADULT Review of Records: reports: Old Records Reviewed, Nursing Assessment Review, Medications Reviewed - IMMUNIZATION STATUS Childhood Immunizations: See Nurse Assessment Flu Vaccine: See Nurse Assessment - FAMILY HISTORY Family History: reviewed, not pertinent - SOCIAL HISTORY Smoking: non-smoker Living Situation: care facility ([facility] Physical Exam-Injury Related - Physical Exam-Injury Related Initial Vital Signs Reviewed: Yes General Appearance: other (sleeping) Head, Ears, Nose, Mouth & Throat: normocephalic/atraumatic Neck: full range of motion Extremity: other (complains of pain with passive movement but full ROM). negative: deformity Integumentary: normal color, warm/dry. negative: ecchymosis Progress - PLAN OF CARE/RESULTS Progress/Plan/Lab Results: Vital Signs - 8 hr 10/22/19 12:43 Temperature 98 F Pulse Rate 65 Respiratory Rate 23 Blood Pressure 168/77 O2 Sat by Pulse Oximetry 97 Laboratory Results - last 24 hr 10/22/19 10/22/19 10/22/19 14:03 14:03 14:03 WBC 8.29 RBC 4.72 Hgb 13.6 Hct 41.7 MCV 88.3 MCH 28.8 MCHC 32.6 L RDW Std Deviation 13.5 Plt Count 164 MPV 11.4 H Immature Gran % (Auto) 0.2 Neut % (Auto) 68.1 Lymph % (Auto) 22.7 Taney % (Auto) 7.0 Eos % (Auto) 1.8 Baso % (Auto) 0.2 Immature Gran # (Auto) 0.02 Neut # (Auto) 5.64 Lymph # (Auto) 1.88 Taney # (Auto) 0.58 Eos # (Auto) 0.15 Baso # (Auto) 0.02 Sodium 141 Potassium 3.5 Chloride 104 Carbon Dioxide 28 Anion Gap 9 BUN 16 Creatinine 0.9 Estimated GFR/1.73 m2 59 BUN/Creatinine Ratio 18 Glucose 96 Calculated Osmolality 282 Calcium 10.0 Total Bilirubin 0.73 AST 14 ALT 10 Alkaline Phosphatase 88 Total Protein 5.9 L Albumin 3.7 Globulin 2.2 Albumin/Globulin Ratio 1.7 Plasma Lactate 1.5 Orders Category Date Time Status NEWS Score 2-4:Order NEWS Lactate Series NOW Care 10/22/19 12:[address] PELVIS W/O CONTRAST [CT] Stat Exams 10/22/19 13:30 Completed CBC WITH DIFF [HEME] Stat Lab 10/22/19 14:03 Completed COMPREHENSIVE METABOLIC PANEL [CHEM] Stat Lab 10/22/19 14:03 Completed LACTATE, PLASMA [CHEM] Lab 10/22/19 14:03 Completed LACTATE, PLASMA [CHEM] Lab 10/22/19 16:00 Uncollected LACTATE, PLASMA [CHEM] Lab 10/22/19 19:00 Uncollected URINALYSIS W/POSS RFLX CULT [URINALYSIS] Stat Lab 10/22/19 13:33 Uncollected Result Diagrams: 10/22/19 14:03 10/22/19 14:03 - CT/MRI 1 CT Study: Pelvis (EXAM: CT PELVIS W/O CONTRAST 10/22/2019 HISTORY: intractable pain, falls TECHNIQUE: This exam was performed using automated exposure control, adjustment of mA or kV according to patient size, and/or use of iterative reconstruction technique. COMMENT: The current study is compared with 10/21/2019. There is degenerative disc and facet disease at L4-5 with moderate spinal stenosis. There is facet arthropathy bilaterally at L5-S1. There is generalized osteopenia. There is a total hip prosthesis on the left. There are severe degenerative changes in the right hip. There are degenerative changes in the symphysis pubis with calcium pyrophosphate deposition. There is constipation with fecal impaction in the rectum. IMPRESSION: No apparent change since 10/21/2019. Bone scintigraphy or MRI might be considered to evaluat e the possibility of occult stress fracture. Electronically signed by Roman Coles 10/22/2019 2:34 PM) - CONSULTS/PCP/HOSPITALIST Notification #1 *Consult/PCP/Hospitalist*: Dr. Arteaga, PCP, Time Discussed: 15:54 (PCP is on his way and will put orders for admission in due to multiple falls and possible admission to custodial ) Reason/Comments: multiple falls Consult Disposition: Admit Departure - Departure Date of Disposition Decision: 10/22/19 Time of Disposition Decision: 15:55 DIAGNOSIS: Multiple falls Disposition: ADMITTED INPATIENT 09 Certified Medical Emergency: Emergent Condition: Good Referrals and Follow-Ups: El Arteaga MD [Primary Care Provider] - - Critical Care Note This patient required my direct & personal management of CC.: No Attestation - Physician/ DEB Attestation Patient care was provided by Advanced Practice Provider:: No The physician spent face to face time with patient:: Yes Advanced Practice Provider documentation review:: Supervising physician onsite and consulted in the evaluation and care of this patient. The physician did have a face to face encounter with the patient. This chart was documented by the indicated scribe, (Mallory Schmitt, Emiliana) and accurately reflects the services I performed and decisions made by me, Иван Kirk MD, as attested by the provider's signature.
[2019-10-22] MEDS ORDERED: MIRALAX PO PRN (17:12)
[2019-10-22] MEDS: ZOCOR PO SCH (20:26)
[2019-10-22] MEDS: SEROQUEL PO SCH (20:26)
[2019-10-22] MEDS: ARICEPT PO SCH (20:26)
[2019-10-22] MEDS: TOPROL XL PO SCH (20:26)
[2019-10-22] MEDS: COLACE PO SCH (20:26)
[2019-10-23] MEDS: SEROQUEL PO SCH ×4 (08:17→20:17)
[2019-10-23] MEDS: COLACE PO SCH ×3 (08:17→20:17)
[2019-10-23] MEDS: TEARISOL OPH SOLUTION BOTH EYES SCH (08:25)
--- NOTE | 2019-10-23 13:19 | PROGRESS NOTE ---
DATE: 10/23/2019 SUBJECTIVE: Ms. Mcwilliams is awake and alert. She does not really want to take her medicines, but otherwise is being cooperative. She has no pain. She says she does not feel good, but when questioned what it is, she really cannot tell you. She says she is alright. She can lift both legs off the bed. There is no focal tenderness I can find in her hips or knees or pelvis or upper extremities. OBJECTIVE: Vital Signs: She remains afebrile, temperature 98.5 degrees, pulse 69, respirations 16, blood pressure 183/77, but the last couple blood pressures were 103/68, 166/67, 183/77. HEENT: Pupils are equal and round. Lungs: Clear in all lung wesley. Cardiovascular: Regular rhythm and rate without murmur or S3. Abdomen: Soft. Skin: Warm and dry. IMAGING: CT of her pelvis was unremarkable. There is no acute stress fracture appreciated anywhere. ASSESSMENT AND PLAN: Two falls this weekend. She would like to get a wheelchair. I think her family would like to take her back to [facility] and get her a wheelchair, and apparently that is going to be the plan. Will have Physical Therapy kind of evaluate how she is doing, and hopefully we can discharge her back to [place]. Originally, they were thinking about putting her into a care home, so Social Service will discuss this with them. cc: El Arteaga MD
[2019-10-23] MEDS: ARICEPT PO SCH (20:17)
[2019-10-23] MEDS: ZOCOR PO SCH (20:17)
[2019-10-23] MEDS: TOPROL XL PO SCH (20:17)
[2019-10-24] MEDS: COLACE PO SCH (08:53)
[2019-10-24] MEDS: SEROQUEL PO SCH ×2 (08:53→12:12)
[2019-10-24] MEDS ORDERED: CYANOCOBALAMIN IM SCH (09:00)
--- NOTE | 2019-10-24 10:17 | DISCHARGE SUMMARY ---
ADMISSION DATE: 10/22/2019 DISCHARGE DATE: 10/24/2019 HOSPITAL COURSE: She had come into the emergency room on Thursday and also on Thursday, both times for a fall. It appears to have been a mechanical fall. No history of syncope. No sign of tonic- clonic activity or focal neurologic changes. There was concern that she could have injury to her hip. We did 2 x-rays and we did a CT of her pelvis and hip and found no fractures. She is in no pain. Able to lift her legs off the bed. She is very weak and I think that is mainly from deconditioning and her size. She wants to go back to [place]. Family would like her back to [place], and they would like to get a wheelchair for her, so we will see if we can get that arranged. OBJECTIVE: Vital Signs: On exam today, blood pressure 144/100. Last several blood pressures 103/68, 166/67, 183/77, 144/100. Eyes: Pupils are equal and round. Lungs: Lungs are clear in all lung wesley. Cardiovascular exam: Regular rhythm and rate without murmur or S3. Abdomen: Soft, nondistended. Skin: Warm and dry. LABORATORY DATA: Reviewed her lab. White count 8290, hematocrit 41, platelet count 164,000. Sodium 141, potassium 3.5, chloride 104. BUN 16, creatinine 0.9, blood sugar 96, alkaline phosphatase 88. AST 14, ALT is 10. IMAGING STUDIES: Her pelvic CT with no apparent changes since 10/21/2019. Bone scintigraphy and MRI might be considered to evaluate possibility of occult stress fracture, but we will see how she does with ambulation and with physical therapy, and hope to get her back to [place]. PAST MEDICAL HISTORY: History of DVT for which she is on Coumadin for a good long time. She is off Coumadin now. History of osteoarthritis, history of dementia. Plan to continue her current medications. DISCHARGE MEDICATIONS: She gets Colace 100 mg p.o. b.i.d., Aricept 5 mg at bedtime, Toprol-XL 100 mg at bedtime, MiraLAX 17 g p.o. b.i.d. p.r.n., Seroquel 25 mg p.o. at 8 o'clock and noon and 100 mg at bedtime, Zocor 10 mg p.o. at bedtime. cc: El Arteaga MD
[2019-10-24] MEDS: TEARISOL OPH SOLUTION BOTH EYES SCH (12:12)
[2019-10-24 15:12] VITALS: BP 138/81
== END 2019-10-24 18:01 | disposition home health service (06) | DRG 948 ==
LOC: SUPCPDRO → ED 11:57 → EDIPHOLD 16:19 → 4N 17:44
PROVIDERS: ADMIT Emergency Medicine; ATTEND Emergency Medicine